=== PATIENT | female | born 1945 | race Caucasian/White ===

== ENCOUNTER 2020-03-15 15:54 | Emergency (ER) | payer OTHER, SELFPAY ==
[2020-03-15 16:02] VITALS: BP 138/81; PULSE 98; RESP 16; TEMP 37.6; O2SAT 98
--- NOTE | 2020-03-15 16:02 | ED.SKABFB ---
HPI - Skin/Abscess/Foreign Bdy General Chief complaint: Skin/Abscess/Foreign Body Stated complaint: right arm possible bite Time Seen by Provider: 03/15/20 16:02 Source: patient and RN notes reviewed History of Present Illness HPI narrative: Patient is a 74-year-old female who presents the urgent care with complaints of a bug bite to the right forearm. Patient states that she woke up with a bug bite this morning and states that it itches and davison. Patient denies of any use of [id number] medication to the area such as Neosporin or taking Benadryl. No other acute complaints. Denies of any fever, change in the area since this morning, nausea, vomiting. No other acute complaints. No acute distress noted. Patient read the plan of care. Related Data Home Medications Medication Instructions Recorded Confirmed aspirin [Adult Low Dose Aspirin] 81 mg PO DAILY 03/15/20 03/15/20 famotidine 20 mg PO DAILY 03/15/20 03/15/20 gabapentin 300 mg PO DAILY 03/15/20 03/15/20 lisinopril-hydrochlorothiazide 1 tablet PO DAILY 03/15/20 03/15/20 tizanidine 2 mg PO HS 03/15/20 03/15/20 Allergies Allergy/AdvReac Type Severity Reaction Status Date / Time No Known Allergies Allergy Verified 03/15/20 16:10 Review of Systems Review of Systems: Narrative: CONSTITUTIONAL: Denies fever, chills, or sweats. EYES: Denies visual changes, redness, or discharge. ENT: Denies rhinorrhea, congestion, sore throat, or otalgia. CARDIOVASCULAR: Denies chest pain, palpitations, or edema. RESPIRATORY: Denies cough or dyspnea. GASTROINTESTINAL: Denies abdominal pain, nausea, vomiting, or diarrhea. GENITOURINARY: Denies dysuria or hematuria. SKIN: Reports of a bug bite to the right forearm MUSCULOSKELETAL: Denies back pain, joint pain, or myalgia. NEUROLOGIC: Denies headache, numbness, or weakness. All other systems reviewed are negative, except as documented in HPI. PMFSH Comments At the time of my signature, I reviewed and agree with the nursing past medical, surgical, social, and family history. There is no relevant family history pertinent to the patient complaint. Exam Narrative: Exam Narrative: GENERAL: This is a well-nourished, well-developed patient, in no apparent distress. HEAD: normocephalic, atraumatic. EYES: PERRL. Sclera clear/white. Vision is grossly intact. EARS: External ears normal NOSE: External nose normal with no obvious nasal discharge, nares without redness, no rhinorrhea. THROAT: Mucous membranes moist NECK: Neck supple SKIN: 0.75 cm localized raised area of erythema to the medial right forearm with mild tenderness NEURO: awake, alert, and oriented to person, place and time. There were no obvious focal neurologic abnormalities. EXTREMITIES: No clubbing, cyanosis, or edema. N Course Vital Signs Vital signs: Vital Signs Temperature 99.6 F 03/15/20 16:02 Pulse Rate 98 03/15/20 16:02 Respiratory Rate 16 03/15/20 16:02 Blood Pressure 138/81 03/15/20 16:02 Pulse Oximetry 98 03/15/20 16:02 Temperature 99.6 F 03/15/20 16:02 Pulse Rate 98 03/15/20 16:02 Respiratory Rate 16 03/15/20 16:02 Blood Pressure 138/81 03/15/20 16:02 Pulse Oximetry 98 03/15/20 16:02 Reviewed MDM - Skin/Abscess/Foreign Bdy MDM Narrative Medical decision making narrative: Advised the patient to take Benadryl and apply Neosporin to the area. Use ice packs in 20-minute intervals as needed. Shiv the area to assess for increased redness or swelling. If you develop any increase of redness or swelling associated with fever, nausea, vomiting?go to the emergency room. Follow-up with your PCP within 2 to 5 days or for worsening symptoms or failure to improve. Differential Diagnosis Differential diagnosis: Likely abscess of skin or subcutaneous tissue, herpes zoster, eczema, impetigo and contact dermatitis Critical Care Time Critical Care Time Critical Care Time: No Discharge Plan Discharge Clinical Impression: Insect bite Qu
== END 2020-03-15 16:26 | disposition home or self-care (01) ==
PROVIDERS: Emergency Provider Nurse Practitioner Family; PCP Internal Medicine
DX: S50.861A Insect bite (nonvenomous) of right forearm, initial encounter (principal); I10 Essential (primary) hypertension; G62.9 Polyneuropathy, unspecified; K21.9 Gastro-esophageal reflux disease without esophagitis; Z79.82 Long term (current) use of aspirin; W57.XXXA Bitten or stung by nonvenomous insect and other nonvenomous arthropods, initial encounter
CPT/HCPCS: 99211; G0463